=== PATIENT | male | born 1970 | race Caucasian/White ===

== ENCOUNTER 2017-12-22 05:34 | Day surgery (SDC) | payer BC, OTHER ==
[~2017-12-22] VITALS: Ht 182.9 cm; Wt 142.9 kg
--- NOTE | ~2017-12-22 | O ---
[facility] [place] [address] OPERATIVE REPORT Name: PAT BRISCOE Room #: 150-4 [facility]#: [id number] Admission: 12/22/17 Attend Phys: Angel Guzman MD Discharge: Date of : 70 Report #: [id number] THIS REPORT FOR: //name// CC: FAM unknown Angel Guzman DATE OF SERVICE: 12/22/2017 PREOPERATIVE DIAGNOSIS: Left displaced 2-part distal radius fracture. POSTOPERATIVE DIAGNOSIS: Left displaced 2-part distal radius fracture. PROCEDURE: Open reduction internal fixation left 2-part distal radius fracture. SURGEON: Angel Guzman MD. EXCEL VBA DEVELOPER: Huong Ortiz PA-C. ANESTHESIA: LMA. TOURNIQUET TIME: 31 minutes. IMPLANTS: Acumed short left distal radius locking screw with 6 distal locking screws and 3 proximal cortical screws. COMPLICATIONS: None. SPECIMENS: None. CONDITION UPON LEAVING THE OPERATING ROOM: Stable. INDICATIONS FOR PROCEDURE: The patient is a 47-year-old gentleman who fell and sustained a left displaced 2-part distal radius fracture and 20 degrees of dorsal angulation and after discussion with him, he elected for ORIF of his left radius. DESCRIPTION OF PROCEDURE: Risks, benefits, alternatives, complications were discussed in detail with the patient including but not limited to risk of anesthesia, risk of damage to nerves, arteries, blood vessels, risk for infection, bleeding, risk for continued wrist pain, malunion, nonunion and need for reoperation. Informed consent was obtained from the patient. Left wrist was appropriately marked in the preoperative holding area. IV Ancef was given for preoperative antibiotics. He was brought to the operating room and placed in the supine position on operating room table. LMA anesthesia was induced without complication. Tourniquet was placed on the left arm. The left upper extremity was prepped and draped in normal sterile fashion. Timeout was [facility] [address] [place] [address] OPERATIVE REPORT Name: PAT BRISCOE Room #: 150-4 [facility]#: [id number] Admission: 12/22/17 Attend Phys: Angel Guzman MD Discharge: Date of : 70 Report #: [id number] performed properly identifying the patient and procedure as well as the instrumentation and implants. All in the operating room were in agreement. Left upper extremity was exsanguinated, tourniquet was inflated. Tourniquet time was 31 minutes. Standard volar approach to the wrist was made with a 15 blade through the skin, centered over the FCR tendon. Dissection was taken down sharply to the FCR tendon and retracted radially. Floor of the sheath was incised longitudinally and blunt dissection was taken down to the pronator and this was taken off the radial aspect of the distal radius sharply and elevated with a buck elevator. The fracture was then identified and cleaned out and held reduced manually. This was provisionally fixed with the radial styloid K-wire and verified to have adequate and acceptable reduction under AP and lateral imaging. A wide 3-hole distal radius locking plate was then placed on the volar aspect of the distal radius and held provisionally with 1 cortical screw proximally in the dynamic slot. A K-wire was placed distally to verify that the locking plate was at the appropriate level as was the case. Four distal locking screws were placed in the most distal row and then, the proximal cortical screw was tightened down to afford a plate reduction. Two radial styloid locking screws were placed and then, 2 proximal locking screws were placed using the guide. After this, final fluoroscopic images were taken to verify adequate fracture reduction and placement of hardware. Tourniquet was deflated. Hemostasis was obtained with Bovie cautery. The incision was thoroughly irrigated with normal saline. Skin was closed with 2-0 Vicryl, 3-0 nylon. Soft dressing of Adaptic, 4 x 4, Webril and a volar splint were applied. The patient tolerated this procedure well and went to recovery room under care of anesthesia postoperatively. By: [id number] Angel Guzman MD /snow
[~2017-12-22 05:34] MED LIST: CELEXA40 MG PO; HYDROCODONE-AP1 EAC6 PO; LISINOPRIL-HCT1 EACH PO; LISINOPRIL20 MG PO; OMEPRAZOLE40 MG PO
[2017-12-22 14:27] LABS: CALCIUM 9.6 mg/dL (8.5-10.1); CREATININE 1.2 mg/dL (0.7-1.3); POTASSIUM 3.8 mmol/L (3.5-5.1)
[2017-12-22 15:00] VITALS: BP 136/82
[2017-12-22] MEDS ORDERED: PERCOCET PO (16:47)
[2017-12-22 17:01] VITALS: BP 136/82
== END 2017-12-22 18:06 | disposition home or self-care (01) ==
LOC: TBA 05:34 → OR 05:34
PROVIDERS: Orthopaedic Surgery
DX: S52.592A Other fractures of lower end of left radius, initial encounter for closed fracture (principal); I10 Essential (primary) hypertension; K21.9 Gastro-esophageal reflux disease without esophagitis; F41.8 Other specified anxiety disorders; Z90.49 Acquired absence of other specified parts of digestive tract; F32.9 Major depressive disorder, single episode, unspecified; Z98.890 Other specified postprocedural states; Z79.891 Long term (current) use of opiate analgesic; X58.XXXA Exposure to other specified factors, initial encounter; Y93.89 Activity, other specified; Y92.89 Other specified places as the place of occurrence of the external cause; Y99.8 Other external cause status
CPT/HCPCS: 50010; 50101; 55430; 62110; 62900; 70005